=== PATIENT | female | born 2000 | race Two or more races ===

== ENCOUNTER 2020-11-21 22:11 | Inpatient (IN) | payer MEDICAID ==
[~2020-11-21] VITALS: Ht 160 cm; Wt 74.0 kg
[2020-11-21] MEDS: LACTATED RINGERS 1,000 ML IV SCH (22:40)
[2020-11-21] MEDS ORDERED: NEWBORN KIT ONE (22:47)
[2020-11-21] MEDS ORDERED: OXYTOCIN 30U/ 0.9% NaCL 500ML 500 ML ONE (22:47)
[2020-11-21] MEDS ORDERED: FENTANYL PF 100 MCG/2ML IVPush PRN (23:00)
[2020-11-21] MEDS ORDERED: FENTANYL PF 100 MCG/2ML IV PRN (23:00)
[2020-11-21] MEDS ORDERED: TERBUTALINE 1 MG/ML, 1ML IVPush PRN (23:00)
[2020-11-21] MEDS ORDERED: SODIUM CITRATE/CITRIC ACID 30 ML UDC PO PRN (23:00)
[2020-11-21] MEDS ORDERED: METOCLOPRAMIDE 5 MG/ML, 2ML IVPush PRN (23:00)
[2020-11-21] MEDS ORDERED: TERBUTALINE 1 MG/ML, 1ML SQ PRN (23:00)
[2020-11-21] MEDS ORDERED: OXYTOCIN 30U/ 0.9% NaCL 500ML 500 ML IV ONE (23:00)
[2020-11-21] MEDS ORDERED: D5%-LACTATED RINGERS 1,000 ML IV SCH (23:00)
[2020-11-21] MEDS ORDERED: ONDANSETRON 2MG/ML, 2ML IVPush PRN (23:00)
[2020-11-21 23:13] LABS: BASOPHILS % (AUTO) 1 % (0-1); EOSINOPHILS % (AUTO) 0 % (1-7); LYMPHOCYTES % (AUTO) 15 % (22-44); MEAN CORPUSCULAR HEMOGLOBIN 22.3 pg (27.0-34.8); MEAN CORPUSCULAR HGB CONC 31.8 g/dL (32.4-35.8); MEAN PLATELET VOLUME 9.1 fL (7.4-10.4); MONOCYTES % (AUTO) 6 % (2-9); NEUTROPHILS % (AUTO) 78 % (42-75); PLATELET COUNT 257 x10^3/uL (130-400); RED BLOOD COUNT 4.42 x10^6/uL (3.82-5.3); RED CELL DISTRIBUTION WIDTH 17.7 % (9.6-15.2)
[2020-11-22] MEDS: LACTATED RINGERS 1,000 ML IV SCH
[2020-11-22 00:15] VITALS: BP 96/62
[2020-11-22] MEDS ORDERED: IBUPROFEN 600 MG TABLET ONE (01:18)
[2020-11-22] MEDS: IBUPROFEN 600 MG TABLET PO PRN ×2 (01:30→17:00)
[2020-11-22] MEDS: OXYTOCIN 30U/ 0.9% NaCL 500ML 500 ML IV SCH ×7 (01:45→22:00)
[2020-11-22] MEDS ORDERED: DOCUSATE 100 MG CAPSULE PO PRN (02:00)
[2020-11-22] MEDS ORDERED: MISOPROSTOL 200 MCG TABLET PR PRN (02:00)
[2020-11-22] MEDS ORDERED: BISACODYL 10 MG SUPP PR PRN (02:00)
[2020-11-22] MEDS ORDERED: ONDANSETRON 2MG/ML, 2ML IV PRN (02:00)
[2020-11-22] MEDS ORDERED: ACETAMINOPHEN 325 MG TABLET PO PRN ×2 (02:00)
[2020-11-22] MEDS ORDERED: HYDROcodone/APAP 5/325 TABLET PO PRN ×2 (02:00)
[2020-11-22] MEDS ORDERED: CALCIUM CARBONATE 500 MG TAB.CHEW PO PRN (02:00)
[2020-11-22] MEDS ORDERED: SIMETHICONE 80 MG CHEW TAB PO PRN (02:00)
[2020-11-22 02:30] VITALS: BP 113/67
[2020-11-22 08:00] VITALS: BP 117/64
[2020-11-22 08:30] LABS: MEAN CORPUSCULAR HEMOGLOBIN 22.2 pg (27.0-34.8); MEAN CORPUSCULAR HGB CONC 31.3 g/dL (32.4-35.8); MEAN PLATELET VOLUME 8.8 fL (7.4-10.4); PLATELET COUNT 246 x10^3/uL (130-400); RED BLOOD COUNT 4.24 x10^6/uL (3.82-5.3); RED CELL DISTRIBUTION WIDTH 17.8 % (9.6-15.2)
[2020-11-22 08:57] LABS: <PLATELET ESTIMATE> ADEQUATE; ANISOCYTOSIS 1+; BAND#(MANUAL) 0.35 x10^3/uL; BANDS%(MANUAL) 2 % (0-7); LARGE PLATELETS 1+; LYMPH#(MANUAL) 1.73 x10^3/uL (1-3.4); LYMPHS% (MANUAL) 10 % (22-44); MONOS#(MANUAL) 0.87 x10^3/uL (0.3-2.7); MONOS% (MANUAL) 5 % (2-9); SEG#(MANUAL) 14.36 x10^3/uL (1.8-6.8); SEGS% (MANUAL) 83 % (42-75)
[2020-11-22] MEDS: PRENATAL VIT/IRON/FA 1 EACH TABLET PO SCH (09:00)
[2020-11-22 12:00] VITALS: BP 108/76
[2020-11-22] MEDS ORDERED: LIDOCAINE-MPF 1%, 2ML ONE (14:41)
[2020-11-22 16:30] VITALS: BP 112/82
[2020-11-22 19:35] VITALS: BP 99/67
[2020-11-23] MEDS: IBUPROFEN 600 MG TABLET PO PRN (05:50)
[2020-11-23] MEDS ORDERED: IBUP-1222 PO (06:51)
[2020-11-23 07:50] VITALS: BP 107/73
[2020-11-23] MEDS: OXYTOCIN 30U/ 0.9% NaCL 500ML 500 ML IV SCH (08:00)
[2020-11-23] MEDS: PRENATAL VIT/IRON/FA 1 EACH TABLET PO SCH (09:11)
[2020-11-23] MEDS ORDERED: MEASLES,MUMPS&RUBELLA VACC/PF 0.5 ML SQ-VACC ONE ×2 (11:26→11:30)
== END 2020-11-23 12:50 | disposition home or self-care (01) | DRG 807 ==
LOC: LDOP 22:11 → LDIP 22:38 → 2NW 11-22 02:15
PROVIDERS: ADMIT Obstetrics & Gynecology; ATTEND Obstetrics & Gynecology
PROC: 0HQ9XZZ Repair Perineum Skin, External Approach (ICD-10-PCS; principal; 2020-11-22)
PROC: 10E0XZZ Delivery of Products of Conception, External Approach (ICD-10-PCS; 2020-11-22)
PROC: 10907ZC Drainage of Amniotic Fluid, Therapeutic from Products of Conception, Via Natural or Artificial Opening (ICD-10-PCS; 2020-11-22)
DX: O99.354 Diseases of the nervous system complicating childbirth (principal); Z37.0 Single live birth; O70.0 First degree perineal laceration during delivery; Z20.822 Contact with and (suspected) exposure to COVID-19; G43.909 Migraine, unspecified, not intractable, without status migrainosus; Z3A.38 38 weeks gestation of pregnancy; Z80.0 Family history of malignant neoplasm of digestive organs; Z80.3 Family history of malignant neoplasm of breast; Z80.49 Family history of malignant neoplasm of other genital organs; Z83.3 Family history of diabetes mellitus; Z86.16 Personal history of COVID-19; Z80.8 Family history of malignant neoplasm of other organs or systems; Z23 Encounter for immunization
CPT/HCPCS: 36415; 85025; 86592; 86850; 86900; 87635; 90707; G0378; J2405; J3010; J2590; J7120

== ENCOUNTER 2021-01-16 12:40 | Emergency (ER) | payer MEDICAID ==
[~2021-01-16] VITALS: Ht 160 cm; Wt 60.4 kg
[~2021-01-16 12:40] MED LIST: IBUP-1222 PO
--- NOTE | 2021-01-16 13:11 | NUR ---
PATIENT WALKED BACK FROM TRIAGE WITH CHIEF C/O FEVER X2 DAYS, HIGHEST TEMP 103.8 AT HOME. PATIENT DENIES N/V/D, NO SOB OR COUGH. PATIENT REPORTS FEELING LIKE SHE "HAD A BLADDER INFECTION LAST WEEK." NO LONGER SYMPTOMATIC. NADN, CONNECTED TO MONITOR, VSS, SIGNIFICANT OTHER AT BEDSIDE, CALL LIGHT WITHIN REACH.
--- NOTE | 2021-01-16 14:10 | NUR ---
PATIENT RESTING IN [place] ON PHONE, NADN, VSS, CALL LIGHT WITHIN REACH. WAITING FOR ORDERS.
--- NOTE | 2021-01-16 14:12 | NUR ---
ERPA AT BEDSIDE FOR EVALUATION.
[2021-01-16] MEDS ORDERED: ACETAMINOPHEN 500 MG TABLET ONE (14:28)
[2021-01-16] MEDS ORDERED: ACETAMINOPHEN 500 MG TABLET PO ONE (14:30)
--- NOTE | 2021-01-16 14:38 | NUR ---
PATIENT MEDICATED PER [facility], AMBULATED TO BATHROOM WITH STEADY GAIT FOR URINE SAMPLE.
[2021-01-16 14:40] LABS: MEAN CORPUSCULAR HGB CONC 32.6 g/dL (32.4-35.8); MEAN PLATELET VOLUME 8.2 fL (7.4-10.4); PLATELET COUNT 318 x10^3/uL (130-400); RED BLOOD COUNT 4.86 x10^6/uL (3.82-5.3); RED CELL DISTRIBUTION WIDTH 22.9 % (9.6-15.2)
--- NOTE | 2021-01-16 14:42 | NUR ---
URINE COLLECTED AND SENT TO LAB.
[2021-01-16 14:46] LABS: ALBUMIN 3.5 g/dL (3.4-5.0); ANION GAP 8 mmol/L (5-15); CHLORIDE 108 mmol/L (98-107); CREATININE 0.56 mg/dL (0.55-1.02)
[2021-01-16 14:50] LABS: ALANINE AMINOTRANSFERASE 29 U/L (12-78); ALKALINE PHOSPHATASE 141 U/L (45-117)
[2021-01-16 15:02] LABS: MICROSCOPIC INDICATED
--- NOTE | 2021-01-16 15:36 | NUR ---
COVID SWAB COLLECTED AND WALKED TO LAB.
--- NOTE | 2021-01-16 15:39 | NUR ---
ERMD AT BEDSIDE TO DISCUSS POC.
[2021-01-16 16:03] VITALS: BP 105/53
--- NOTE | 2021-01-16 16:08 | NUR ---
Patient given discharge instructions and prescription and they have confirmed that they understand the instructions. Patient ambulatory with steady gait with significant other at side. NAD, all questions answered appropriately, denies additional needs at this time. No personal belongings left in room after discharge.
[2021-01-16 16:14] LABS: BAND#(MANUAL) 2.46 x10^3/uL; BANDS%(MANUAL) 16 % (0-7); LYMPH#(MANUAL) 1.23 x10^3/uL (1-3.4); LYMPHS% (MANUAL) 8 % (22-44); MONOS#(MANUAL) 0.62 x10^3/uL (0.3-2.7); MONOS% (MANUAL) 4 % (2-9); SEG#(MANUAL) 11.09 x10^3/uL (1.8-6.8); SEGS% (MANUAL) 72 % (42-75)
[2021-01-16 16:16] LABS: <PLATELET ESTIMATE> ADEQUATE; <PLT MORPHOLOGY> NORMAL PLT MORPH; HYPOCHROMIA 1+; MICROCYTOSIS 1+; POLYCHROMASIA 1+
== END 2021-01-16 16:10 | disposition home or self-care (01) ==
LOC: ED 15:30
DX: N10 Acute pyelonephritis (principal); Z20.822 Contact with and (suspected) exposure to COVID-19; R30.0 Dysuria; R50.9 Fever, unspecified; R00.0 Tachycardia, unspecified
CPT/HCPCS: 36415; 71045; 80053; 81001; 85025; 87077; 87086; 87186; 99284; U0003; U0005